=== PATIENT | male | born 1975 | race Caucasian/White ===

== ENCOUNTER 2022-02-09 03:17 | Emergency (ER) | payer BC ==
[~2022-02-09] VITALS: Ht 167.6 cm; Wt 64.9 kg
--- NOTE | 2022-02-09 03:33 | NUR ---
JONNY FROM HOME C/O NAUSEA X2 DAYS S/P DRINKING ALCOHOL. +VOMITTING -DIARRHEA. PATIENT ALERT AND ORIENTED X3. AMBULATORY WITH NON LABORED BREATHING. PLACED IN BED 11 ON MONITOR AND POX.
[2022-02-09] MEDS ORDERED: IV NS 0.9% 1,000 ML BAG IV ONE (04:00)
[2022-02-09] MEDS ORDERED: LORAZEPAM INJ 2 MG/ML VIAL IV ONE (04:00)
[2022-02-09] MEDS ORDERED: CHLORDIAZEPOXIDE HCL 25 MG CAPSULE PO ONE (04:00)
[2022-02-09] MEDS ORDERED: CHLORDIAZEPOXIDE HCL 25 MG CAPSULE ONE (04:06)
[2022-02-09] MEDS ORDERED: LORAZEPAM INJ 2 MG/ML VIAL ONE (04:06)
[2022-02-09 04:16] LABS: BASOPHILS % (AUTO) 0.7 % (0.0-2.0); EOSINOPHILS % (AUTO) 0.1 % (0.0-6.0); HEMATOCRIT 45 % (39-51); HEMOGLOBIN 15.4 g/dL (13.5-17.5); LYMPHOCYTES # (AUTO) 0.7 K/uL (0.8-4.8); LYMPHOCYTES % (AUTO) 18.2 % (20.0-44.0); MEAN CORPUSCULAR HGB CONC 34 g/dl (31.0-36.0); MEAN CORPUSCULAR VOLUME 86 fL (80-96); MONOCYTES # (AUTO) 0.3 K/uL (0.1-1.30); MONOCYTES % (AUTO) 8.6 % (2.0-12.0); NEUTROPHILS # (AUTO) 2.9 K/uL (1.8-8.9); NEUTROPHILS % (AUTO) 72.4 % (43.0-81.0); PLATELET COUNT (AUTO) 169 K/uL (150-450); RED BLOOD CELL COUNT(AUTO) 5.24 MIL/uL (4.5-6.0)
[2022-02-09 04:26] LABS: CALCIUM, SERUM 8.8 mg/dL (8.5-10.1); CREATININE 0.9 mg/dL (0.6-1.3); POTASSIUM 3.3 mmol/L (3.5-5.1)
[2022-02-09 04:32] LABS: ALBUMIN 4.3 g/dL (3.4-5.0); BILIRUBIN,DIRECT 0.3 mg/dL (0.0-0.2); BILIRUBIN,TOTAL 1.7 mg/dL (0.2-1.0); TOTAL PROTEIN, SERUM 7.5 g/dL (6.4-8.2)
[2022-02-09] MEDS ORDERED: FOLIC ACID 1 MG TABLET PO ONE (05:00)
[2022-02-09] MEDS ORDERED: ONDANSETRON HCL/PF 4 MG/2 ML VIAL IV ONE (05:00)
[2022-02-09] MEDS ORDERED: POTASSIUM CHLORIDE 20 MEQ TAB.PRT.SR PO ONE ×2 (05:00→05:17)
[2022-02-09] MEDS ORDERED: Magnesium 1 GM/2 ML VIAL IV ONE (05:00)
[2022-02-09] MEDS ORDERED: THIAMINE HCL 100 MG TABLET PO ONE (05:00)
[2022-02-09] MEDS ORDERED: ONDANSETRON HCL/PF 4 MG/2 ML VIAL ONE (05:17)
[2022-02-09] MEDS ORDERED: FOLIC ACID 1 MG TABLET ONE (05:17)
[2022-02-09] MEDS ORDERED: THIAMINE HCL 100 MG TABLET ONE (05:18)
[2022-02-09] MEDS ORDERED: CHLO25CA22 PO ×2 (06:01)
[2022-02-09] MEDS ORDERED: LORA-259 PO (06:35)
--- NOTE | 2022-02-09 06:45 | NUR ---
Patient discharged to home in stable condition. Written and verbal after care instructions given. Patient verbalizes understanding of instruction. IV line discontinued and PT ambulated out of ER with steady gait.
[2022-02-09 06:46] VITALS: BP 149/77
== END 2022-02-09 06:47 | disposition home or self-care (01) ==
LOC: ER 03:30
DX: F10.231 Alcohol dependence with withdrawal delirium (principal); F10.229 Alcohol dependence with intoxication, unspecified; Y90.9 Presence of alcohol in blood, level not specified; Z79.52 Long term (current) use of systemic steroids
CPT/HCPCS: 36415; 80048; 80076; 83690; 83735; 85025; 96361; 96374; 96375; 99284; J2060; J2405; J7030